=== PATIENT | female | born 2000 | race Caucasian/White ===

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

== ENCOUNTER 2022-10-27 16:30 | Outpatient (RCR) | payer MEDICAID, SELFPAY ==
--- NOTE | 2022-08-07 18:34 | HP.PTEVAL ---
Patient's Visit Information DEEPTHI SONG is a 22 year old F referred to Physical Therapy by Dr. Kiera Carmona MD with a diagnosis of Chronic R ankle and L Hamstring pain. Date of Evaluation: 08/07/22 Physical Therapist: Speedy Buchanan PT, ATC - Visit Plan Frequency: 3x /Week Duration: 4-6 Weeks Plan: R ankle: stretching/strengthening, balance and proprio, core strengthening, bike, and HEP. L hamstring: stretching/strengthening, stick rollout, DTR, core strengthening, and HEP - Subjective Pt reports she injured her R ankle several years ago. Pt reports she believes she may have sprained it at that time, but never had treatment for it. Pt reports she has had intermittent pain in her R ankle ever since. Pt reports the longer she stands on her feet, the worse her pain becomes. Pt reports she has had no Dx tests performed at this time. Pt reports her swelling and pain go down if she elevates her feet. Pt denies tingling and numbness in her R LE. Pt denoes sleep difficulty at this time secondary to pain. Pt reports she has stairs at her house and she can negotiate them without difficulty. Pt reports her L thigh pain started about 4 months ago. Pt reports her pain had an insidious onset in nature. Pt reports she has pain only when she walks a lot, or works out. Pt reports that pain is getting better, but is still there. Pt notes rest usually makes it feel better. Pt reports she is here mostly from being frustrated that her pain wont just go away. R ankle pain is 0/10 at rest, 7/10 pain at worst (when she has been standing all day. L knee 2/10 pain at rest, 4/10 pain at worst - Pain L knee Pain Intensity (Out of 10): 2 Pain Intensity Range: 10 R ankle Pain Intensity (Out of 10): 0 Pain Intensity Range: 7 - Objective Neuro: Palpation: No obvious deformities at this time. ROM: L ankle DF= 2, PF= 55; R ankle DF= 0, PF= 55. MMT: R ankle DF and eversion are 4-/5. all other B Ankle strength 5/5. L HS strength 4-/5. All other B knee strength 5/5 throughout. Special tests: Pos 90/90 test bilat ( 45 degree lag). Gait: Pt is able to run, jump and skip without pain. Pt demonstrate sig knee valgus with forward lunge indicating core weakness - Balance/Special Test Scores Lower Extremity Functional Score: 72 - Goals Goal 1:: Decrease R ankle and L hamstring pain x 50% to aid with improving pt's tolerance for prolonged wb'ing activity Goal Time Frame: 4-6 Weeks Goal 2:: Increase R ankle eversion and dorsiflexion strength x 1 grade to aid with decreasing R ankle pain Goal Time Frame: 4-6 Weeks Goal 3:: Increase L hamstring strength x 1 grade to aid with return to gym without limitation Goal Time Frame: 4-6 Weeks Goal 4:: I with HEP Goal Time Frame: 4-6 Weeks Goal 5:: Increase B ankle dorsiflexion ROM x 10 degrees to aid with preventing future ankle sprains Goal Time Frame: 4-6 Weeks - Rehabilitation Potential Physical Therapy Diagnosis: Pt has R ankle pain, weakness, and limited DF ROM secondary to an old sprain several years ago. Pt has L posterior thigh pain and limited knee ext ROM secondary to L hamstring strain. Rehabilitation Potential: Good - Anticipated Interventions Patient/Client Instruction: Educate patient on: Condition, Plan of Care For the Purpose of:: To improve self management Therapeutic Exercise to Include: Strength training, Endurance training, Balance training, Flexibilty training, Dynamic Lumbar Stabilization For the Purpose of:: To decrease pain, To increase ROM, To improve muscle performance and motor function Cryotherapy (ice pack, ice massage): Yes For the Purpose of:: To decrease pain Thank you for the opportunity to evaluate your patient. For Medicare and Medicare HMO plans, please review the plan of care and approve it. It will need to be FAXED BACK to us at [phone] for Medicare purposes. For Medicare only, by signing this I certify the plan of care. Please let me know if there are questions or concerns regarding this plan of care. Physician Signature: Date:
--- NOTE | 2022-10-27 17:06 | HP.PTDCSUM_ITS ---
It has been my pleasure to treat DEEPTHI SONG referred by Dr. Kiera Carmona MD, with the diagnosis of Chronic R ankle and L Hamstring pain for a total of 19 visit(s). Discharge Date: Please see the following information for a summary of their discharge status. Subjective: Pt reports she is ready for discharge. Only mild pain this date L knee Pain Intensity (Out of 10): 0 R ankle Pain Intensity (Out of 10): 0 % Improvement: 93 Objective/Function: R ankle pain ranges from 0-3/10. No L hamstring pain at this time. R ankle and HS strength are both grossly rated at 5/5 throughout. B ankle DF ROM is now at 10 degrees. Pt is I with HEP and has achieved all Rx goals Goal 1:: Decrease R ankle and L hamstring pain x 50% to aid with improving pt's tolerance for prolonged wb'ing activity Goal Progress: Goal Met Goal 2:: Increase R ankle eversion and dorsiflexion strength x 1 grade to aid with decreasing R ankle pain Goal Progress: Goal Met Goal 3:: Increase L hamstring strength x 1 grade to aid with return to gym without limitation Goal Progress: Goal Met Goal 4:: I with HEP Goal Progress: Goal Met Goal 5:: Increase B ankle dorsiflexion ROM x 10 degrees to aid with preventing future ankle sprains Goal Progress: Goal Met Plan: Discharge to [facility] If there are questions or concerns regarding this patient's physical therapy, please feel free to call me at [phone]. Thank you for the referral of this patient. Sincerely, Speedy Buchanan, PT, ATC Balance/Gait/Functional tests - Balance/Special Test Scores Lower Extremity Functional Score: 80
== END 2022-10-27 19:00 | disposition home or self-care (01) ==
LOC: PT 16:30
PROVIDERS: PCP Pediatrics; Referring Provider Pediatrics; Visit Provider Pediatrics
DX: M25.571 Pain in right ankle and joints of right foot (principal); M79.652 Pain in left thigh; G89.29 Other chronic pain
CPT/HCPCS: 97110; 97161; 97164

== ENCOUNTER 2023-09-14 23:55 | Emergency (ER) | payer OTHER, MEDICAID, SELFPAY ==
[2023-09-14 23:56] VITALS: BP 125/86; PULSE 86; RESP 16; TEMP 36.6; O2SAT 99; BMI 19.7
--- NOTE | 2023-09-15 00:16 | RAD_ITS ---
INDICATION: Pain EXAMINATION/TECHNIQUE: X-RAY - LEFT XR Wrist Min 3 Views COMPARISON: None. FINDINGS: SOFT TISSUES: Unremarkable. BONES/JOINTS: No fracture or dislocation. No significant degenerative changes. No erosive changes. RAD/Wrist min 3 Views IMPRESSION: Unremarkable views of the left wrist. Electronically Signed: Aries Beltre DO at 0:50 EDT ,
--- NOTE | 2023-09-15 00:17 | EX.ED.UPPERE ---
HPI History of Present Illness Chief Complaint: Upper Extremity Injury Detail of Chief Complaint: Left wrist pain Informant: patient Narrative Narrative: Patient presents with left wrist pain for about 3 days. She states that she bumped her hand on a piece of metal about a week ago but the pain in the wrist only started like 3 days ago. Patient does do a lot of repetitive motions twisting of the wrist and pulling while at work. Patient is right-hand dominant. PFSH PFSH Medical History no medical history Home Medications amoxicillin 400 mg-potassium clavulanate 57 mg/5 mL oral suspension 11 mls PO BID #160 mL 03/14/20 [Rx Last Taken Unknown] Allergy/AdvReac Type Severity Reaction Status Date / Time No Known Allergies Allergy Verified 09/14/23 23:56 Social History Smoking Status: Never smoker ROS ROS ED Review of Systems ROS Unobtainable: other Constitutional Constitutional ED: Reports lethargy; Denies chills, fever(s), sweats or weight loss Eyes Eyes: Denies blurry vision, change in vision or diplopia ENT ENT ED: Denies rhinorrhea or sore throat Cardiovascular Cardiovascular: Denies chest pain, orthopnea or racing heartbeat Respiratory/Chest Respiratory/Chest: Denies cough, dyspnea, dyspnea on exertion, orthopnea or sputum Gastrointestinal Gastrointestinal: Denies abdominal pain, diarrhea, nausea or vomiting Genitourinary Genitourinary ED: Denies dysuria, hematuria or urinary frequency Musculoskeletal Musculoskeletal: Reports other Details: Left wrist pain ; Denies arthralgias, back pain, myalgias or neck pain Integumentary Denies abscess, Abrasions or rash Neurologic Neurologic: Denies headache(s) or weakness Psychiatric Psychiatric: Denies anxiety, depression or suicidal thoughts Endocrine Endocrinology: Denies polydipsia, polyphagia or polyuria Hematologic/Lymphatic Hematologic/Lymphatic: Denies easy bleeding, easy bruising or lymphadenopathy Allergic/Immunologic Allergic/Immunologic ED: Denies mouth swelling, tongue swelling or urticaria EXAM Physical Exam Const Vital Signs: 09/14/23 23:56 Temperature 97.8 F Temperature Source Temporal Pulse Rate 86 Respiratory Rate 16 Blood Pressure 125/86 H Blood Pressure Mean 99 Pulse Ox 99 Positive well nourished and well developed General Appearance ED: well developed and NAD HEENT Reports TM's clear and moist mucous membranes normocephalic and atraumatic; Negative for trauma or tenderness Tympanic Membrane ED: Yes TM's clear Eyes PERRL and EOMs intact bilaterally General Eye ED: Negative for pale conjunctiva or scleral icterus Neck no lymphadenopathy, supple and no JVD General: Negative for tenderness Chest Wall inspection of chest normal and palpation of chest normal Chest: Negative for tenderness Resp normal respiratory effort and clear to auscultation bilaterally Effort and Inspection: Negative for respiratory distress or pain with movement Auscultation: Negative for rhonchi, wheezes or diminished lung sounds Cardio regular rate, regular rhythm, S1 normal heart sound, S2 normal heart sound and no murmurs Peripheral Pulses: pulses 2+ throughout GI normal to inspection, nondistended, normoactive bowel sounds, soft to palpation, non-tender, non-distended and no masses Back/Spine no CVA tenderness and no thoracic nor lumbar tenderness Extremity Extremity Narrative: Left wrist-patient has an area of ecchymosis and bruising noted to the dorsum of the left wrist. Her tenderness is mostly over the ulnar aspect of the wrist. She has normal range of motion flexion extension. She is neurovascular intact. No obvious deformity. General Extremety ED: Negative for edema General Extremity: Negative for edema Neuro oriented x3, CN's II-XII intact bilaterally, no sensory deficits noted and gait normal Sensorium / Orientation: awake, alert, oriented to person, oriented to place and oriented to time Motor Exam: strength 5/5 throughout and strength abnormal Psych mental status grossly normal Skin no rashes or lesions noted and no wounds MDM MDM MDM Narrative Medical decision making narrative: Patient presents with pain to the left wrist without known significant trauma. X-rays were obtained of the left wrist which were normal. This point she will be given a wrist splint. I suspect possibly repetitive use type injury. She does not want work restrictions for work. She is advised to use ibuprofen or Tylenol for discomfort. She is advised to rest the wrist is much as possible. Radiography Diagnostic Testing: Three-view x-rays of the left wrist obtained interpreted by myself as no evidence of fracture or dislocation. Radiology in agreement. Discharge Plan Triage Chief Complaint: Upper Extremity Injury ED Provider: Sanjay Hernandez Dx/Rx/DC Orders Clinical Impression: Acute wrist pain Instructions: ED Wrist Sprain Prescriptions: No Action amoxicillin-pot clavulanate 400 MG/5 ML suspension for reconstitution 11 mls PO BID Qty: 160 0RF Primary Care Provider: Care Physician,No Primary Referrals: Kiera Carmona MD [Non-Staff] - 5-7 Days Disposition Disposition: Home, Self Care
== END 2023-09-15 01:26 | disposition home or self-care (01) ==
PROVIDERS: Emergency Provider Emergency Medicine; Visit Provider Emergency Medicine
DX: M25.532 Pain in left wrist (principal); X50.3XXA Overexertion from repetitive movements, initial encounter
CPT/HCPCS: 73110; 99283

== ENCOUNTER 2024-07-29 21:33 | Emergency (ER) | payer OTHER, MEDICAID, SELFPAY ==
[2024-07-29 21:34] VITALS: BP 141/81; PULSE 86; RESP 14; TEMP 36.2; O2SAT 98
--- NOTE | 2024-07-29 21:45 | RAD_ITS ---
STUDY: X-RAY - LEFT FOOT CLINICAL: Female, 24 years old. INJURY TECHNIQUE: 3 view(s) of the foot. COMPARISON: None. FINDINGS: Normal talus, calcaneus, and tarsal bones. Normal visualized subtalar, talonavicular, calcaneocuboid, tarsal and tarsometatarsal articulations. Normal metatarsi. Normal metatarsophalangeal joint of the great toe. Normal tibial and fibular sesamoid bones. Normal interphalangeal joint of the great toe. Normal phalanges of the great toe. Normal second through fifth metatarsophalangeal joints. Normal interphalangeal joints and phalanges of the lesser toes. The soft tissue structures are unremarkable. RAD/Foot min 3 Views IMPRESSION: Normal x-ray examination of the foot. Electronically Signed: Richie Schwartz MD at 22:21 EDT ,
--- NOTE | 2024-07-29 22:17 | EDS_ITS ---
HPI History of Present Illness Chief Complaint: Lower Extremity Injury Informant: patient Narrative Narrative: Patient presents for the first time for an injury that occurred 10 days ago to her left foot. She states she had a work related injury where she accidentally dropped a core that is made out of heavy-duty plastic and weighs somewhere between 10 to 15 pounds; it seems that this core is the center of a long spool of rolled up material. 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 The area of interest/pain is to the first MTPJ. PFSH PFSH Medical History no medical history no medical history Home Medications ?Medication ?Instructions ?Recorded ?Last Taken ?Type amoxicillin 400 mg-potassium 11 mls PO BID #160 mL 03/14/20 Unknown Rx clavulanate 57 mg/5 mL oral suspension Allergy/AdvReac Type Severity Reaction Status Date / Time No Known Allergies Allergy Verified 07/29/24 21:36 Social History Smoking Status: Never smoker ROS ROS ED Constitutional Constitutional ED: Denies chills or fever(s) Musculoskeletal Musculoskeletal: Reports extremity pain; Denies neck pain Integumentary Denies Abrasions, rash or wounds Neurologic Neurologic: Denies paresthesias or weakness EXAM Physical Exam Const Vital Signs: 07/29/24 21:34 Temperature 97.2 F L Temperature Source Temporal Pulse Rate 86 Respiratory Rate 14 Blood Pressure 141/81 H Blood Pressure Mean 101 Pulse Ox 98 Oxygen Delivery Method Room Air Positive well nourished and well developed General Appearance ED: well developed and NAD Neck full ROM and supple Back/Spine normal ROM and normal to inspection Extremity Extremity Narrative: Ecchymosis and tenderness to the left first MTPJ. No nail injury or tenderness. No midfoot tenderness, swelling, and no foot deformities. Neuro oriented x3, no focal motor deficits and no sensory deficits noted Sensorium / Orientation: alert Psych mental status grossly normal and thought process normal Skin no wounds Rashes: no rashes MDM MDM MDM Narrative Medical decision making narrative: Three-view x-ray series of the left foot on my interpretation is negative for any acute fracture or dislocation. Patient reassured, she does not require postop shoe for this, I had her fill out a FROI and gave her follow-up if it does not improve. She was advised if she has a bruise to the bone that it may take longer to heal. She agrees she does not need any restrictions at this time. She was just concerned that it may be fractured. Discharge Plan Triage Chief Complaint: Lower Extremity Injury ED Provider: Qasim Bradshaw Dx/Rx/DC Orders Clinical Impression: Contusion of foot, left Instructions: ED Foot Contusion Prescriptions: No Action amoxicillin-pot clavulanate 400 MG/5 ML suspension for reconstitution 11 mls PO BID Qty: 160 0RF Primary Care Provider: Care Physician,No Primary Referrals: [facility] [Group of Physicians] - 10-14 Days if not better Print Language: Chinese Disposition Disposition: Home, Self Care
[2024-07-29 22:33] VITALS: BP 125/64; PULSE 87; RESP 18; TEMP 36.2; O2SAT 99
== END 2024-07-29 22:34 | disposition home or self-care (01) ==
PROVIDERS: Emergency Provider Emergency Medicine; Visit Provider Emergency Medicine
DX: S90.32XA Contusion of left foot, initial encounter (principal); W22.8XXA Striking against or struck by other objects, initial encounter; Y99.0 Civilian activity done for income or pay; Y92.89 Other specified places as the place of occurrence of the external cause
CPT/HCPCS: 73630; 99282

== ENCOUNTER → 2025-06-01 | Outpatient (CLI) | payer OTHER, SELFPAY | END | disposition home or self-care (01) | DX: S63.693A Other sprain of left middle finger, initial encounter (principal) | CPT/HCPCS: 73140 ==